=== PATIENT | male | born 1965 ===

== ENCOUNTER 2017-06-04 17:55 | Emergency (ER) | payer BC ==
[2017-06-04 18:09] VITALS: TEMP 98.2
[2017-06-04] MEDS ORDERED: TDAP Vaccine 0.5 mL Syr IM ONE (19:05)
--- NOTE | 2017-06-04 19:09 | ED PDOC ---
Arrival/HPI - General Chief Complaint: Bite Time Seen by Provider: 06/04/17 19:00 Historian: Patient - History of Present Illness Narrative History of Present Illness (Text): 06/04/17 19:06 This 52 yo male who denies pmh, allergy to PCN, presents to this emergency department complaining of left lower leg dog bite x [employer]. Patient stated while walking on side walk, his neighbor dog bit his leg. Patient stated dog is UTD rabies immunization. Patient does not recall last tetanus shot. Patient denies REDDY, diplopia, dizziness, weakness, CP, other somatic complains. Patient had notified [place] Police. Patient later admits a pmh Hypertension, and he has never taken medication for this. Time/Duration: Prior to Arrival Context: Pedestrian Past Medical History - Provider Review Nursing Documentation Reviewed: Yes - Cardiac Hx Cardiac Disorders: Yes Hx Hypertension: Yes - Endocrine/Metabolic Hx Endocrine Disorders: Yes Hx Diabetes Mellitus Type 2: Yes - Psychiatric Hx Substance Use: No Family/Social History - Physician Review Nursing Documentation Reviewed: Yes Family/Social History: Other (noncontributory) Smoking Status: n Hx Alcohol Use: Yes Frequency of alcohol use: Socially Hx Substance Use: No Allergies/Home Meds Allergies/Adverse Reactions: Allergies Penicillins Allergy (Verified 06/04/17 18:26) RASH Review of Systems - Review of Systems Constitutional: Normal. absent: Fatigue, Weight Change, Fevers Eyes: Normal ENT: Normal Respiratory: Normal. absent: SOB Cardiovascular: Normal. absent: Chest Pain, Palpitations Gastrointestinal: Normal Genitourinary Male: Normal Musculoskeletal: Normal Skin: Other (dog bite) Neurological: Normal, Other (Patient has a normal speech, normal gait. no neuro focal deficts). absent: Headache, Dizziness, Focal Weakness, Gait Changes , Speech Changes, Facial Droop, Disequilibrium, Seizure Endocrine: Normal Hemo/Lymphatic: Normal Psychiatric: Normal Physical Exam Vital Signs Temp Pulse Resp BP Pulse Ox 06/04/17 20:20 104 H 18 209/117 H 100 06/04/17 18:07 98.2 F 135 H 22 205/134 H 99 Temperature: Afebrile Blood Pressure: Normal Pulse: Regular Respiratory Rate: Normal Appearance: Positive for: Well-Appearing, Non-Toxic, Comfortable Pain Distress: None Mental Status: Positive for: Alert and Oriented X 3 - Systems Exam Head: Present: Atraumatic, Normocephalic Pupils: Present: PERRL Extroacular Muscles: Present: EOMI Conjunctiva: Present: Normal Mouth: Present: Moist Mucous Membranes Upper Extremity: Present: Normal Inspection, Normal ROM Lower Extremity: Present: NORMAL PULSES, Normal ROM, Neurovascularly Intact, Capillary Refill < 2 s, Other ((+) 2 punc). No: Edema, CALF TENDERNESS Neurological: Present: GCS=15, CN II-XII Intact, Speech Normal, Motor Func Grossly Intact, Normal Sensory Function, Normal Cerebellar Funct, Gait Normal Skin: Present: Warm, Dry, Normal Color. No: Rashes Psychiatric: Present: Alert, Oriented x 3, Normal Insight, Normal Concentration Medical Decision Making ED Course and Treatment: 06/04/17 19:11 Re-evaluation. Patient feels better. Discussed results and plan with patient who expresses understanding. All questions answered and there is agreement with the plan to discharge home with instructions. Patient stable for discharge. Return if symptoms persist or worsen. Patient was recommended to clean wound 2 times a day. To take medication as instructed. To see pmd in 2 days for wound check, and blood pressure recheck and to return to emergency department if wound becomes infected. Re-evaluation Time: 19:13 Reassessment Condition: Re-examined, Improved - EKG Interpretation Interpreted by ED Physician: Yes (Sinus tachycardia @[address] changes) Type: 12 lead EKG Comparison: No previous EKG avail. - Medication Orders Current Medication Orders: Discontinued Medications Ciprofloxacin (Cipro) 500 mg PO ONCE STA PRN Reason: Protocol Stop: 06/04/17 19:06 Last Admin: 06/04/17 19:26 Dose: 500 mg Clindamycin HCl (Cleocin) 300 mg PO STAT STA PRN Reason: Protocol Stop: 06/04/17 19:06 Last Admin: 06/04/17 19:26 Dose: 300 mg Tetanus/Reduced Diphtheria/Acell Pertussis (Boostrix Vaccine Inj) 0.5 ml IM .ONCE ONE Stop: 06/04/17 19:06 Last Admin: 06/04/17 19:25 Dose: 0.5 ml Immunization Registry Document 06/04/17 19:25 HI (Rec: 06/04/17 19:25 HI [id number]) Immunization Registry Consent Date 06/04/17 - Procedure PROCEDURE NOTE (Text): 06/04/17 19:13 Wound care was performed by EMT Disposition/Present on Arrival - Present on Arrival Any Indicators Present on Arrival: No History of DVT/PE: No History of Uncontrolled Diabetes: No Urinary Catheter: No History of Decub. Ulcer: No History Surgical Site Infection Following: None - Disposition Have Diagnosis and Disposition been Completed?: Yes Diagnosis: Dog bite of extremity, Hypertension Disposition: HOME/ ROUTINE Disposition Time: 20:25 Patient Problems: Current Active Problems Problem Status Onset Dog bite of extremity Acute Hypertension Acute Condition: GOOD Discharge Instructions (ExitCare): Animal Bites (DC) Additional Instructions: Call private doctor for follow up visit and wound recheck in 2 days. Clean wound 2 times daily. Take medication as instructed. Avoid strenuous activities for at least 4 weeks after taking Ciprofloxacin. Return to emergency sooner if infection occurs. Make sure to see your doctor for blood pressure recheck in 1-2 days. Return to emergency if you experience chest pain , dizziness, headache, neck stiffness. Prescriptions: Ciprofloxacin HCl [Cipro] 500 mg PO BID #14 tab Clindamycin [Cleocin] 300 mg PO QID #28 cap Ibuprofen [Motrin] 600 mg PO Q8 PRN #20 tab PRN Reason: Pain, Severe (8-10) Referrals: Philipp Stuart MD [Primary Care Provider] - Follow up with primary Forms: Context app [employer] (Sinhala), WORK NOTE
[2017-06-04 20:20] VITALS: BP 209/117; PULSE 104; RESP 18; O2SAT 100
--- NOTE | 2017-06-05 21:40 | CARD ---
APPROVED REPORT EKG Measurement Heart [id number] <Conclusion> Sinus tachycardia Possible Inferior infarct, age undetermined Abnormal ECG
== END 2017-06-04 20:49 | disposition home or self-care (01) ==
LOC: ED 17:55
DX: S81.852A Open bite, left lower leg, initial encounter (principal); W54.0XXA Bitten by dog, initial encounter; I10 Essential (primary) hypertension; E11.9 Type 2 diabetes mellitus without complications; Z88.0 Allergy status to penicillin; Z23 Encounter for immunization